=== PATIENT | male | born 1995 | race American Indian/Alaskan Native ===

== ENCOUNTER 2016-06-15 21:34 | Emergency (ER) | payer MEDICAID, OTHER ==
[~2016-06-15] VITALS: Ht 165.1 cm; Wt 70.0 kg
[2016-06-15 21:47] VITALS: Ht 165.1 cm; Wt 70.0 kg
[2016-06-15] MEDS ORDERED: HYDROCODONE/APAP (10/325) TAB PO ONE (23:00)
--- NOTE | 2016-06-15 23:48 | ERD ---
ER Documentation Chief Complaint Date/Time DATE: 06/15/16 TIME: 23:46 Chief Complaint laceration to head sp fall from playing soccer HPI This is a 21-year-old male who presents the emergency department today for a head laceration after sustaining an injury while colliding with an opponent ball playing soccer earlier this evening. Patient states he took ibuprofen for the pain. Denied any nausea vomiting, loss of consciousness. States he does have a headache in the area where he was hit. States his tetanus was given 3 years ago ROS All systems reviewed and are negative except as per history of present illness. Medications Home Meds Active Scripts Acetaminophen* (Tylophen*) 500 Mg Capsule, 1 CAP PO Q6H Y for PAIN AND OR ELEVATED TEMP, #30 CAP Prov:ADITYA HUERTA PA-C 06/15/16 Hydrocodone/Acetaminophen ([place] 10-325 Tablet) 1 Each Tablet, 1 TAB PO Q6H Y for PAIN, #15 TAB Prov:ADITYA HUERTA PA-C 06/15/16 Allergies Allergies: Coded Allergies: No Known Allergy (Unverified , 06/15/16) PMhx/Soc Medical and Surgical Hx: pt denies Medical Hx, pt denies Surgical Hx Hx Alcohol Use: No Hx Substance Use: Yes (MARIJUANA) Hx Tobacco Use: No Smoking Status: Never smoker Physical Exam Vitals Vital Signs Date Time Temp Pulse Resp B/P Pulse Ox O2 Delivery O2 Flow Rate FiO2 06/15/16 21:47 97.8 62 18 126/63 100 Physical Exam Const: No acute distress Head: 2.5 cm laceration left side of head with mild swelling bleeding well controlled Eyes: Normal Conjunctiva. PERRLA. EOM intact. ENT: Ears no hemotympanum. Nose no epistaxis. Throat no erythema no exudate Neck: Full range of motion..~ No meningismus. No midline tenderness. Resp: Clear to auscultation bilaterally Cardio: Regular rate and rhythm, no murmurs Abd: Soft, non tender, non distended. Normal bowel sounds Skin: 2.5 cm laceration left side of head Neur: Awake and alert. No focal neurologic deficits. No gait ataxia. Psych: Normal Mood and Affect Results 24 hrs Current Medications Medications (Trade) Dose Ordered Sig/Tyler Route PRN Reason Start Time Stop Time Status Last Admin Dose Admin Acetaminophen/ Hydrocodone Bitart ([place] (10)) 1 tab ONCE ONCE PO 06/15/16 23:00 06/15/16 23:01 DC 06/15/16 23:09 Procedures/MDM This is a 21-year-old male who presents to the emergency department today complaining of a laceration on left side of his head that he sustained after colliding with an opponent while playing soccer earlier this evening. On physical exam patient has a 2.5 cm laceration on the left side of his head. Patient did have some tenderness to palpation there. He denies any tenderness palpation in his jaw or neck. Given the mechanism of injury I did offer to obtain a head CT scan for the patient and patient has declined at this time. Patient indicated he would return for any worsening of symptoms. He did not have any nausea or vomiting or loss of consciousness and he denies any blurred vision and therefore do have lower suspicion for acute fracture, hemorrhage, mass, abscess however I evidenced plane to the patient that I cannot see for certain that he does not have a fracture. Patient was in understanding and again refused a head CT. Patient had his tetanus shot within the past 3 years and therefore he was not given another one here today Plan to the patient I would need to place hilda to help close the wound. When the risks and benefits of the procedure and the patient agreed to proceed. The area was prepped in the usual sterile fashion was cleaned with Betadine and normal saline. There is no evidence of foreign body. Patient tolerated the procedure well and there were no complications. Laceration Repair by me: Anesthesia: None Location: left side of head Tendon/Joint/Nerves: No injury Foreign body: None detected after copious irrigation and exploration Technique: 4 hilda Complexity: No subcutaneous sutures/mucosal repair/ edge excision Post Closure Length: 2.5 cm Patient's bleeding was easily controlled in the department and there is no indication of anemia. No evidence of compartment syndrome, neurologic injury, vascular injury, open joint, tendon laceration, or foreign body. Patient is appropriate for outpatient follow up. 48 hour wound check. Scar minimization instructions given. Patient was given [place] here in the emergency department for pain. Have given him a prescription for home as well as a separate prescription for Tylenol. He was instructed not to take ibuprofen or Naprosyn or Motrin at this time. He is given a work note. He was instructed to keep the wound clean and dry. At this time the patient is stable for discharge and outpatient management. Patient should follow up with their PCP in the next 1-2 days. They may return to the emergency department sooner for any persistent or worsening of symptoms. Patient understood and agreed with the plan. Departure Diagnosis: Primary Impression: Acute head injury without loss of consciousness Encounter type: initial encounter Qualified Code: S09.90XA - Acute head injury without loss of consciousness, initial encounter Additional Impression: Laceration Condition: Fair ADITYA HUERTA PA-C Jun 15, 2016 23:48
[2016-06-15] MEDS ORDERED: HYDR-902 PO (23:49)
[2016-06-15] MEDS ORDERED: ACET500C5 PO (23:50)
== END 2016-06-16 00:04 | disposition home or self-care (01) ==
LOC: FTE 21:34
DX: S01.91XA Laceration without foreign body of unspecified part of head, initial encounter (principal); W03.XXXA Other fall on same level due to collision with another person, initial encounter; Y92.9 Unspecified place or not applicable
CPT/HCPCS: 12001; Z7610

== ENCOUNTER 2016-06-17 18:11 | Emergency (ER) | END 2016-06-17 19:04 | disposition home or self-care (01) | DX: S01.01XD Laceration without foreign body of scalp, subsequent encounter (principal); X58.XXXD Exposure to other specified factors, subsequent encounter ==

== ENCOUNTER 2016-06-28 12:39 | Emergency (ER) | payer MEDICAID ==
[~2016-06-28] VITALS: Wt 62.0 kg
[~2016-06-28 12:39] MED LIST: ACET500C5 PO; HYDR-902 PO
--- NOTE | 2016-06-28 14:17 | ERD ---
ER Documentation Chief Complaint Date/Time DATE: 06/28/16 TIME: 14:12 Chief Complaint left scalp hilda,need to be romoved. no distress noted. HPI 21-year-old male returns to the emergency department for a staple removal. Patient was seen here 10 days ago after suffering a laceration to the left sided scalp. Patient received 4 hilda and tolerated the procedure without complication. Patient was placed on Bactrim antibiotics which he states he has been compliant with. Today patient states he is feeling well and denies any fever, discharge, swelling, redness, chills, or increased pain. ROS All systems reviewed and are negative except as per history of present illness. Medications Home Meds Active Scripts Acetaminophen* (Tylophen*) 500 Mg Capsule, 1 CAP PO Q6H Y for PAIN AND OR ELEVATED TEMP, #30 CAP Prov:ADITYA HUERTA PA-C 06/15/16 Hydrocodone/Acetaminophen ([place] 10-325 Tablet) 1 Each Tablet, 1 TAB PO Q6H Y for PAIN, #15 TAB Prov:ADITYA HUERTA PA-C 06/15/16 Allergies Allergies: Coded Allergies: No Known Allergy (Unverified , 06/15/16) PMhx/Soc Hx Alcohol Use: No Hx Substance Use: Yes (MARIJUANA) Hx Tobacco Use: No Physical Exam Vitals Vital Signs Date Time Temp Pulse Resp B/P Pulse Ox O2 Delivery O2 Flow Rate FiO2 06/28/16 12:42 98.8 61 20 111/59 98 Physical Exam Const: Well-developed, nontoxic-appearing, in no acute distress Head: Well-healed 2.5 cm laceration located on the left lateral portion of the scalp. No evidence of erythema, edema, discharge. Nontender to palpation. ENT: Normal External Ears, Nose and Mouth. Neck: Full range of motion..~ No meningismus. Skin: No petechiae or rashes Ext: No cyanosis, or edema Neur: Awake and alert Psych: Normal Mood and Affect Procedures/MDM Patient was seen and evaluated and flu track today. Laceration Repair by me: Anesthesia: 1% lidocaine locally Location: 2.5 cm Tendon/Joint/Nerves: No injury Technique: Hilda removed with staple remover Complexity: No subcutaneous sutures/mucosal repair/ edge excision Post stable removal length: 2.5 cm cm Patient did not have any discomfort or bleeding during removal. No evidence of compartment syndrome, neurologic injury, vascular injury, open joint, tendon laceration, or foreign body. Patient is appropriate for outpatient follow up. Scar minimization instructions given. Based on patient's history of present illness and physical examination the decision was made to discharge. The patient was re-evaluated after ED treatment and stabilizing measures, and symptoms have improved. There is no evidence of life threatening injuries or illnesses at this time. On re-examination, patient resting in no distress, stable vital signs, reports feeling better and safe for discharge with outpatient follow up with PMD in 1-2 days. Patient given return precautions. Departure Diagnosis: Primary Impression: Encounter for removal of hilda Additional Impressions: Suture check Laceration of head Encounter type: subsequent encounter Location of open wound of head: scalp Foreign body presence: without foreign body Qualified Code: S01.01XD - Laceration of scalp without foreign body, subsequent encounter ADA PIZANO PA-C Jun 28, 2016 14:17
== END 2016-06-28 17:04 | disposition home or self-care (01) ==
LOC: E/R 12:39
DX: Z48.02 Encounter for removal of sutures (principal); S01.01XD Laceration without foreign body of scalp, subsequent encounter; X58.XXXD Exposure to other specified factors, subsequent encounter
CPT/HCPCS: 99281